=== PATIENT | female | born 1985 | race Caucasian/White ===

== ENCOUNTER 2017-03-04 08:35 | Day surgery (SDCO) | payer OTHER ==
[~2017-03-04 08:35] MED LIST: FLEXERIL10 MG PO; KLONOPIN0.5 MG PO
[2017-03-04 10:51] LABS: BILIRUBIN NEGATIVE (NEGATIVE); BLOOD NEGATIVE Ery/uL (NEGATIVE); CLARITY CLEAR (CLEAR); COLOR YELLOW (YELLOW); GLUCOSE (U) NORMAL (NORMAL); KETONE (U) NEGATIVE (NEGATIVE); LEUKOCYTES NEGATIVE Leu/uL (NEGATIVE); NITRITE NEGATIVE (NEGATIVE); PROTEIN NEGATIVE (NEGATIVE); SPECIFIC GRAVITY 1.015 (1.001-1.030); pH 8.5 (5.0-9.0)
[2017-03-05 05:22] LABS: HCT 32.9 % (37.0-47.0); HGB 10.9 g/dl (12.5-16.0); MCH 30.7 pg (25.0-31.0); MCHC 33.1 g/dL (32.0-36.0); MCV 92.7 fL (78.0-100.0); RBC 3.55 M/uL (4.20-5.40); RDW 12.3 % (11.5-14.0); WBC 7.5 K/uL (4.0-10.5)
[2017-03-05 05:35] LABS: CREATININE 0.5 mg/dL (0.5-1.0); POTASSIUM 3.9 mmol/L (3.5-5.1)
[2017-03-05 11:46] LABS: BILIRUBIN NEGATIVE (NEGATIVE); BLOOD 2+ Ery/uL (NEGATIVE); CLARITY CLEAR (CLEAR); COLOR YELLOW (YELLOW); GLUCOSE (U) NORMAL (NORMAL); KETONE (U) NEGATIVE (NEGATIVE); LEUKOCYTES NEGATIVE Leu/uL (NEGATIVE); NITRITE NEGATIVE (NEGATIVE); PROTEIN NEGATIVE (NEGATIVE); SPECIFIC GRAVITY <=1.005 (1.001-1.030); UROBILINOGEN 0.2 mg/dL (0.2-1.0)
[2017-03-05 12:45] LABS: URINARY RBC RARE
[2017-03-05 12:46] LABS: SQUAMOUS EPITHELIAL CELLS RARE
[2017-03-05] MEDS ORDERED: CERTAGEN1 EACH PO (15:38)
[2017-03-05] MEDS ORDERED: BIOTIN1 MG PO (15:38)
[2017-03-05] MEDS ORDERED: MIRENA1 EACH IY (15:38)
[2017-03-05] MEDS ORDERED: NORCO 5-325 TA1 EACH PO (15:39)
[2017-03-05] MEDS ORDERED: COLACE100 MG PO (15:39)
[2017-03-05] MEDS ORDERED: KEFLEX500 MG PO (15:39)
== END 2017-03-05 12:57 | disposition home or self-care (01) ==
LOC: FAS 08:35 → FMS 13:34
PROVIDERS: ADMIT Surgery
DX: E65 Localized adiposity (principal); K21.9 Gastro-esophageal reflux disease without esophagitis; K52.9 Noninfective gastroenteritis and colitis, unspecified; E04.1 Nontoxic single thyroid nodule; M41.9 Scoliosis, unspecified; F41.8 Other specified anxiety disorders; G47.33 Obstructive sleep apnea (adult) (pediatric); Z90.49 Acquired absence of other specified parts of digestive tract; Z81.1 Family history of alcohol abuse and dependence; Z83.3 Family history of diabetes mellitus; Z98.84 Bariatric surgery status; Z79.899 Other long term (current) drug therapy; Z98.890 Other specified postprocedural states
CPT/HCPCS: 36415; 80048; 81001; 81003; 84703; 88305; 94010; 94762; G0378; J0690; J1100; J1170; J1885; J2270; J2405; J2704; J2710; J3010